=== PATIENT | male | born 1940 | race Caucasian/White ===

== ENCOUNTER 2016-10-01 15:17 | Inpatient (IN) | payer MEDICARE ==
[2016-10-01 15:54] LABS: ABSOLUTE NEUTROPHIL COUNT 15.8 K/mm3 (1.8-7.7); BASO % 0.1 % (0.2-1.0); HEMATOCRIT 48.9 % (32.0-52.0); HEMOGLOBIN 15.9 gm/l (14.0-18.0); IMM NEUT # 0.2 K/mm3 (0-0.2); IMM NEUT% 0.9 % (0-1); LYMPH # 0.8 (1.0-4.8); LYMPH % 4.4 % (15-45); MEAN CELL VOLUME 100.8 fl (80.0-94.0); MEAN CORPUSCULAR HEMOGLOBIN 32.8 pg (27.0-31.0); MEAN CORPUSCULAR HGB CONC 32.5 g/dl (33.0-37.0); MEAN PLATELET VOLUME 9.3 fl (7.4-10.4); MONO # 2.1 (0.0-0.8); MONO % 10.9 % (4-12); NEUT % 83.7 % (43-75); PLATELET COUNT 364 K/mm3 (130-400); RED CELL DISTRIBUTION WIDTH 12.5 % (11.5-14.5)
[2016-10-01 16:03] LABS: ALBUMIN 3.9 gm/dL (3.5-5.7); CALCIUM 9.9 mg/dL (8.6-10.3)
--- NOTE | 2016-10-01 16:52 | RAD ---
10/01/2016 4:46 PM CHEST - 2 VIEWS History: Cough, shortness of breath for 3 days Comparison: None Findings: Two views of the chest are obtained. The lungs demonstrate patchy airspace disease at the peripheral, posterior right base worrisome for pneumonia. Additionally, there is some airspace disease within the right middle lobe. Lingular airspace disease is also possible. There may be tiny effusions bilaterally. Hyperinflation is present with finding of the hemidiaphragm and increase in retrosternal airspace. The cardiomediastinal silhouette is unremarkable.. The osseous structures are intact.. IMPRESSION: Multifocal pneumonia with possible bilateral tiny effusions. Follow-up as clinically warranted.
[2016-10-01] MEDS ORDERED: CEFTRIAXONE 1 GRAM DUPLEX 50 ML IV ONE (18:32)
[2016-10-01] MEDS ORDERED: AZITHROMYCIN 250 MG TABLET ONE (18:32)
[2016-10-01] MEDS ORDERED: MENTHOL/CETYLPYRD 1 EACH LOZENGE PO PRN (20:48)
[2016-10-01] MEDS ORDERED: ACETAMINOPHEN 325 MG TABLET PO PRN (20:48)
[2016-10-01] MEDS ORDERED: BLISTEX LIPSTICK 1 EACH TP PRN (20:48)
[2016-10-01] MEDS ORDERED: BISACODYL 10 MG SUP PR PRN (20:48)
[2016-10-01] MEDS ORDERED: BISACODYL 5 MG TABLET.EC PO PRN (20:48)
[2016-10-01] MEDS ORDERED: MAGNESIUM HYDROXIDE 30 ML UDCUP PO PRN (20:48)
[2016-10-01] MEDS ORDERED: NICOTINE 14 MG PATCH 1 EACH TD PRN (20:55)
[2016-10-01] MEDS ORDERED: NICOTINE POLACRILEX 2 MG LOZENGE PO PRN (20:55)
[2016-10-01 21:34] VITALS: BMI 22.3
[2016-10-01] MEDS ORDERED: PUMP TUBING ONE (21:35)
[2016-10-01] MEDS: ENOXAPARIN SODIUM 40 MG/0.4 ML SYRINGE SUB-Q SCH (21:38)
[2016-10-01] MEDS: SODIUM CHLORIDE 0.9% 1,000 ML IV SCH ×2 (21:39→22:46)
[2016-10-02 04:03] LABS: URINE BILIRUBIN NEGATIVE (NEGATIVE); URINE BLOOD TRACE (NEGATIVE); URINE GLUCOSE (UA) NEGATIVE (NEGATIVE); URINE LEUKOCYTE ESTERASE NEGATIVE (NEGATIVE); URINE NITRITE NEGATIVE (NEGATIVE); URINE PROTEIN 1+ (NEGATIVE)
[2016-10-02 04:22] LABS: URINE APPEARANCE CLEAR; URINE COLOR AMBER; URINE UROBILINOGEN 8 mg/dL (0-1 mg/dl)
[2016-10-02 04:24] LABS: URINE BACTERIA 0; URINE EPITHELIAL CELLS RARE /hpf; URINE WBC 0-3 /hpf
--- NOTE | 2016-10-02 07:04 | HP ---
Ian Correa [id number] DATE OF ADMISSION: 10/01/2016 CHIEF COMPLAINT: Cough. HISTORY OF PRESENT ILLNESS: The patient is a 76-year-old male who reports feeling ill since Saturday of last week initially described as a bad cold, but as the week went on developed fevers, some chills, and dennis sputum. He has not had any hospitalizations for any respiratory conditions. He does smoke a pack of cigarettes a day. He was feeling quite tired and poorly, so came in. PAST MEDICAL HISTORY: Remarkable for glaucoma. He is hard of hearing and he has a remote history of humeral fracture. PAST SURGICAL HISTORY: Cataract replacement. ALLERGIES: THERE IS SOME EYE DROP THAT HE HAS BEEN INTOLERANT OF, BUT THEY ARE NOT SURE WHAT THAT IS. MEDICATIONS: 1. Dorzolamide drop each twice daily. 2. Lantanoprost 1 drop each eye daily. SOCIAL HISTORY: He is a retired numerical control machine machinist. 53 years. Has two kids. Smokes a pack of cigarettes per day. No alcohol use. No particular restoration affiliation. Hobbies none. He has one cat. FAMILY HISTORY: Father at 69. Mom at 81. REVIEW OF SYSTEMS: Eyes, he has glaucoma, but he is otherwise doing okay. Ears: Hard of hearing attributed to noise exposure. No acute complaints. Nose: He has had some nursing home sinus drainage and trouble. Mouth: Teeth have been okay, some have been lost. Neck is okay. Chest: He notes a little bit of soreness due to cough. He normally can walk without restriction and would not be limited in any way from a respiratory standpoint. No heart complaints. No stomach complaints. No diarrhea. No constipation. No vomiting. No urinary complaints. A little of bladder irritation with some frequency and urgency noted. Legs have been okay. Feet have been okay. Skin has been okay. No history of brain injury or strokes. He generally does not want resuscitation, but would accept limited intervention for respiratory status such as limited period of ventilation. PHYSICAL EXAMINATION: GENERAL: Nontoxic male slightly pale. VITAL SIGNS: Blood pressure 142/60, respirations 33 initially, later 28, pulse 79, but had been as high as 101 when he got his EKG, 84% saturation on room air, improved to 94% on 2 liters, temperature 97.9. HEENT: Head is normocephalic, atraumatic. Eyes are unremarkable. Ears are normal, but he is hard of hearing. Nose is normal. Mouth is grossly unremarkable. NECK: Supple. No jugular venous distention. LUNGS: Crackles left lateral chest and slight wheeze is noted bilaterally. He has got a cough which sounds slightly productive. HEART: Regular rate and rhythm. No murmur noted. ABDOMEN: Soft, nontender, nondistended. Bowel sounds are normal. No rebound, no guarding. EXTREMITIES: Legs are unremarkable without clubbing, cyanosis, or edema. Feet are normal. Pulses are good. Mild onychomycosis noted. NEURO: Patient's cranial nerves are intact. Speech is clear, but he is hard of hearing. DIAGNOSTICS: Chest x-ray multifocal pneumonia with possible bilateral tiny effusion suggested. EKG sinus tachycardia, right bundle branch block, QTC is prolonged at 459, septal Q-waves in V1 and V2. LABORATORY: White count 18.9, hemoglobin 15.9, platelets 364, MCV 100.8, sodium 140, potassium 3.6, chloride is 102, CO2 is 29, BUN is 21, creatinine 0.9, glucose 157. AST 23, ALT 30, alk phos 128. Troponin less than 0.01. Albumin 3.9, globulin 3.9. ASSESSMENT AND PLAN: 1. Suspected bacterial community acquired pneumonia, organism not identified yet. Plan Rocephin and azithromycin. 2. Hypoxia due to community acquired pneumonia. Plan oxygen and nebulizer treatments. 3. Sepsis due to community acquired pneumonia. Plan IV fluids. We will monitor pressures. 4. History of glaucoma. We will continue on eye drops. 5. Do not resuscitate, but would accept intubation on a temporary basis. 6. Venous thrombosis prophylaxis will be Lovenox. JOB: [id number] CC: [facility] where he will probably go in follow up.
[2016-10-02] MEDS: CEFTRIAXONE 1 GRAM DUPLEX 50 ML IV SCH (11:55)
[2016-10-02] MEDS: SODIUM CHLORIDE 0.9% 100 ML IV PRN (11:55)
[2016-10-02] MEDS: AZITHROMYCIN 500 MG in SODIUM CHLORIDE 0.9% 250 ML IV SCH (12:44)
--- NOTE | 2016-10-02 14:13 | PDOC43 ---
- Subjective Chief Complaint: Cough Subjective: Reports Tolerating Diet Well, Reports Shortness of Breath ( persistent), Reports Cough (persists) - Objective Vital Signs Temperature 97.6 F 10/02/16 12:00 Pulse Rate 75 10/02/16 12:00 Respiratory Rate 24 10/02/16 12:00 Blood Pressure 134/65 10/02/16 12:00 O2 Saturation by Pulse Oximetry 93 10/02/16 12:00 Oxygen Delivery Method Nasal Cannula Oxygen Flow Rate 2 Intake and Output 10/01/16 10/02/16 10/03/16 06:59 06:59 06:59 Intake Total 240 Output Total 125 Balance 115 General: Alert, Oriented x3, Cooperative, Mild Distress HEENT: Mucous membr. moist/pink Lungs: Diminished at Bases (with scattered ronchi) Cardiovascular: Regular Rate and Rhythm Abdomen: Soft, Normal Bowel Sounds, Non-Distended, No Tenderness Extremities: No Edema 10/02/16 03:50 Urine Urobilinogen 8 mg/dl H Current Medications: Current meds reviewed in EMR. - Problems: Assessment/Plan (1) Community acquired bacterial pneumonia Status: AcuteAssessment/Plan: multifocal bacterial pneumonia with sepsis and hypoxia-cont rocephin, zithromax , nebs and oxygen (2) Glaucoma Qualifiers: Glaucoma type: unspecified type Laterality: bilateral Qualifier Code: (H40.9) Unspecified glaucoma Status: ChronicAssessment/Plan: resume home eye drops when available VTE Prophylaxis: Lovenox Disposition: home when weaned off oxygen
[2016-10-02] MEDS ORDERED: IV START KIT ONE (17:43)
[2016-10-02] MEDS ORDERED: SODIUM CHLORIDE 0.9% FLUSH 10 ML ONE (17:43)
[2016-10-02] MEDS: ENOXAPARIN SODIUM 40 MG/0.4 ML SYRINGE SUB-Q SCH (20:30)
[2016-10-02] MEDS: ALBUTEROL/IPRATROPIUM 2.5/0.5 MG 3 ML/EACH DOSE NEB PRN (21:28)
[2016-10-02] MEDS: LATANOPROST 0.005% 50 GTTS/2.5 ML BOT SOLN.DROP OU SCH (23:23)
[2016-10-02] MEDS: DORZOLAMIDE 2% 200 GTTS/10 ML BOT SOLN.DROP OU SCH (23:24)
[2016-10-03 06:12] LABS: ABSOLUTE NEUTROPHIL COUNT 10.9 K/mm3 (1.8-7.7); BASO # 0.1 K/mm3 (0.0-0.2); BASO % 0.8 % (0.2-1.0); EOS # 0.1 (0.0-0.5); EOS % 0.5 % (0.9-2.9); HEMATOCRIT 40.6 % (32.0-52.0); HEMOGLOBIN 13.3 gm/l (14.0-18.0); IMM NEUT # 0.4 K/mm3 (0-0.2); IMM NEUT% 2.4 % (0-1); LYMPH % 13.7 % (15-45); MEAN CELL VOLUME 101.2 fl (80.0-94.0); MEAN CORPUSCULAR HEMOGLOBIN 33.2 pg (27.0-31.0); MEAN CORPUSCULAR HGB CONC 32.8 g/dl (33.0-37.0); MEAN PLATELET VOLUME 9.3 fl (7.4-10.4); MONO # 1.3 (0.0-0.8); MONO % 8.7 % (4-12); NEUT % 73.9 % (43-75); PLATELET COUNT 316 K/mm3 (130-400); RED CELL DISTRIBUTION WIDTH 12.8 % (11.5-14.5)
--- NOTE | 2016-10-03 12:34 | PDOC43 ---
- Subjective Chief Complaint: Cough Subjective: Reports Tolerating Diet Well (appetite improving), Reports Shortness of Breath (improving), Denies Chest Pain, Denies Fever - Objective Vital Signs Temperature 97.4 F 10/03/16 11:00 Pulse Rate 65 10/03/16 11:00 Respiratory Rate 16 10/03/16 11:00 Blood Pressure 118/56 10/03/16 11:00 O2 Saturation by Pulse Oximetry 94 10/03/16 11:00 Oxygen Delivery Method Nasal Cannula Oxygen Flow Rate 1.5 Intake and Output 10/02/16 10/03/16 10/04/16 06:59 06:59 06:59 Intake Total 240 1794 Output Total 125 1355 Balance 115 439 General: Alert, Oriented x3, Cooperative, Mild Distress HEENT: Mucous membr. moist/pink Lungs: Other (scattered ronchi) Cardiovascular: Regular Rate and Rhythm Abdomen: Soft, Normal Bowel Sounds, Non-Distended, No Tenderness Extremities: No Edema Laboratory 10/03/16 05:30 10/03/16 05:30 RBC 4.01 L MCV 101.2 H MCH 33.2 H MCHC 32.8 L % Immature Granulocyt 2.4 H Current Medications: Current meds reviewed in EMR. - Problems: Assessment/Plan (1) Community acquired bacterial pneumonia Status: AcuteAssessment/Plan: multifocal bacterial pneumonia with sepsis and hypoxia-cont rocephin, zithromax , nebs and oxygen (2) Glaucoma Qualifiers: Glaucoma type: unspecified type Laterality: bilateral Qualifier Code: (H40.9) Unspecified glaucoma Status: ChronicAssessment/Plan: Cont home eye drops VTE Prophylaxis: Lovenox Disposition: home when weaned off oxygen, likely in am
[2016-10-03] MEDS: DORZOLAMIDE 2% 200 GTTS/10 ML BOT SOLN.DROP OU SCH ×2 (12:35→21:56)
[2016-10-03] MEDS: CEFTRIAXONE 1 GRAM DUPLEX 50 ML IV SCH (12:35)
[2016-10-03] MEDS: AZITHROMYCIN 500 MG in SODIUM CHLORIDE 0.9% 250 ML IV SCH (13:38)
[2016-10-03] MEDS: ALBUTEROL/IPRATROPIUM 2.5/0.5 MG 3 ML/EACH DOSE NEB PRN (19:22)
[2016-10-03] MEDS: ENOXAPARIN SODIUM 40 MG/0.4 ML SYRINGE SUB-Q SCH (21:56)
[2016-10-03] MEDS: LATANOPROST 0.005% 50 GTTS/2.5 ML BOT SOLN.DROP OU SCH (22:04)
[2016-10-03] MEDS ORDERED: ALBUTEROL NEB 2.5 MG/3 ML VIAL.NEB NEB PRN (23:43)
[2016-10-04 06:12] LABS: ABSOLUTE NEUTROPHIL COUNT 13.5 K/mm3 (1.8-7.7); BASO % 0.2 % (0.2-1.0); EOS # 0.2 (0.0-0.5); EOS % 1.1 % (0.9-2.9); HEMATOCRIT 41.5 % (32.0-52.0); HEMOGLOBIN 13.2 gm/l (14.0-18.0); IMM NEUT # 0.8 K/mm3 (0-0.2); IMM NEUT% 4.4 % (0-1); LYMPH # 1.7 (1.0-4.8); LYMPH % 9.7 % (15-45); MEAN CELL VOLUME 102.2 fl (80.0-94.0); MEAN CORPUSCULAR HEMOGLOBIN 32.5 pg (27.0-31.0); MEAN CORPUSCULAR HGB CONC 31.8 g/dl (33.0-37.0); MONO # 1.3 (0.0-0.8); MONO % 7.2 % (4-12); NEUT % 77.4 % (43-75); PLATELET COUNT 312 K/mm3 (130-400); RED CELL DISTRIBUTION WIDTH 12.8 % (11.5-14.5)
[2016-10-04 06:32] LABS: CALCIUM 8.9 mg/dL (8.6-10.3)
[2016-10-04 06:58] LABS: BAND 2 % (0-10); BASOPHIL 0 % (0-1); EOSINOPHIL 0 % (1-3); LYMPHOCYTE 11 % (15-45); MONOCYTE 6 % (4-12); NEUTROPHILS 81 % (43-75); TOTAL CELLS COUNTED 100
[2016-10-04 06:59] LABS: PLATELET ESTIMATE NORMAL (NORMAL)
[2016-10-04] MEDS: DORZOLAMIDE 2% 200 GTTS/10 ML BOT SOLN.DROP OU SCH (08:46)
--- NOTE | 2016-10-04 11:14 | RAD ---
CHEST 2 VIEWS HISTORY: Follow-up for pneumonia Frontal and lateral chest radiographs dated 10/04/2016. COMPARISON: 10/01/2016 FINDINGS: LUNG VOLUMES: Hyperinflation. FOCAL AIRSPACE OPACITY: Residual focal density at the lingula. Density at the right lung base is minimally improved. Diffuse reticular markings are noted with additional airspace abnormality of the mid lung barcenas, stable. PLEURAL EFFUSION: Minimal right pleural effusion. CARDIOMEDIASTINAL SILHOUETTE: Nonenlarged. PNEUMOTHORAX: Apical fibrosis, no pneumothorax. OSSEOUS STRUCTURES: Features of thoracic disc degeneration. IMPRESSION: 1. Redemonstration of multifocal airspace disease compatible with history of pneumonia, mildly improved at the right lung base. 2. Residual focal density of the lingula; continued short-term follow-up is recommended with consideration of CT examination to exclude a mass lesion at this region. 3. Hyperinflation compatible with obstructive pulmonary disease.
[2016-10-04] MEDS: L.ACIDOPH,SAL/B.BIF/S.THER 175 MG 1 CAP PO SCH ×2 (11:33→20:48)
[2016-10-04] MEDS ORDERED: PUMP TUBING ONE (11:48)
[2016-10-04 11:54] LABS: C DIFF TOXIN A/B NEGATIVE (NEGATIVE)
[2016-10-04] MEDS: CEFTRIAXONE 1 GRAM DUPLEX 50 ML IV SCH (12:00)
[2016-10-04] MEDS: SODIUM CHLORIDE 0.9% 100 ML IV PRN (12:00)
--- NOTE | 2016-10-04 12:47 | PDOC43 ---
- Subjective Chief Complaint: Cough Subjective: Reports Shortness of Breath (with activity but improving), Reports Cough (improving), Denies Fever - Objective Vital Signs Temperature 98.0 F 10/04/16 11:00 Pulse Rate 74 10/04/16 11:00 Respiratory Rate 20 10/04/16 11:00 Blood Pressure 112/64 10/04/16 11:00 O2 Saturation by Pulse Oximetry 96 10/04/16 11:00 Oxygen Delivery Method Nasal Cannula Oxygen Flow Rate 1.5 Intake and Output 10/03/16 10/04/16 10/05/16 06:59 06:59 06:59 Intake Total 1794 1327 Output Total 1355 450 Balance 439 877 General: Alert, Oriented x3, Cooperative, Mild Distress HEENT: Mucous membr. moist/pink Lungs: Diminished at Bases (with bibasilar ronch) Cardiovascular: Regular Rate and Rhythm Abdomen: Soft, Normal Bowel Sounds, Non-Distended, No Tenderness Extremities: No Edema Skin: Warm, Dry, Intact Laboratory 10/04/16 05:30 10/04/16 05:30 10/04/16 05:30 RBC 4.06 L MCV 102.2 H MCH 32.5 H MCHC 31.8 L Estimated GFR 110 H % Immature Granulocyt 4.4 H Current Medications: Current meds reviewed in EMR. - Problems: Assessment/Plan (1) Community acquired bacterial pneumonia Status: AcuteAssessment/Plan: multifocal bacterial pneumonia with sepsis and hypoxia(still present with activity), leukocytosis slightly worse today but repeat CXR reassuring-cont rocephin, zithromax, nebs and oxygen. Anticipate one more day and will repeat CBC in am (2) Glaucoma Qualifiers: Glaucoma type: unspecified type Laterality: bilateral Qualifier Code: (H40.9) Unspecified glaucoma Status: ChronicAssessment/Plan: Cont home eye drops (3) Diarrhea Qualifiers: Diarrhea type: unspecified type Qualifier Code: (R19.7) Diarrhea, unspecified Status: AcuteAssessment/Plan: likely due to antibiotics but C. Diff is negative VTE Prophylaxis: Lovenox Disposition: home when weaned off oxygen(still hypoxic with activity), likely in am
[2016-10-04] MEDS ORDERED: POTASSIUM CHLORIDE 20 MEQ TAB.PRT.SR PO ONE (12:48)
[2016-10-04] MEDS: AZITHROMYCIN 500 MG in SODIUM CHLORIDE 0.9% 250 ML IV SCH (13:10)
[2016-10-04] MEDS: ENOXAPARIN SODIUM 40 MG/0.4 ML SYRINGE SUB-Q SCH (20:48)
[2016-10-04] MEDS ORDERED: DORZOLAMIDE 2% OU SCH (21:00)
[2016-10-04] MEDS ORDERED: LATANOPROST 0.005% OU SCH (21:00)
[2016-10-05] MEDS: LATANOPROST 0.005% 50 GTTS/2.5 ML BOT SOLN.DROP OU SCH
[2016-10-05 06:00] LABS: ABSOLUTE NEUTROPHIL COUNT 10.4 K/mm3 (1.8-7.7); BASO % 0.3 % (0.2-1.0); EOS # 0.4 (0.0-0.5); EOS % 2.5 % (0.9-2.9); HEMATOCRIT 40.2 % (32.0-52.0); HEMOGLOBIN 12.7 gm/l (14.0-18.0); IMM NEUT # 0.8 K/mm3 (0-0.2); IMM NEUT% 5.2 % (0-1); LYMPH # 1.9 (1.0-4.8); LYMPH % 13.4 % (15-45); MEAN CELL VOLUME 103.1 fl (80.0-94.0); MEAN CORPUSCULAR HEMOGLOBIN 32.6 pg (27.0-31.0); MEAN CORPUSCULAR HGB CONC 31.6 g/dl (33.0-37.0); MEAN PLATELET VOLUME 9.1 fl (7.4-10.4); NEUT % 71.6 % (43-75); PLATELET COUNT 326 K/mm3 (130-400); RED CELL DISTRIBUTION WIDTH 12.9 % (11.5-14.5)
[2016-10-05 06:37] LABS: BAND 6 % (0-10); BASOPHIL 1 % (0-1); EOSINOPHIL 1 % (1-3); LYMPHOCYTE 10 % (15-45); MONOCYTE 9 % (4-12); NEUTROPHILS 73 % (43-75); PLATELET ESTIMATE NORMAL (NORMAL); TOTAL CELLS COUNTED 100
[2016-10-05] MEDS: DORZOLAMIDE 2% 200 GTTS/10 ML BOT SOLN.DROP OU SCH ×2 (09:33)
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
--- NOTE | 2016-10-05 11:16 | CT ---
Exam: CT chest without contrast COMPARISON: Chest regressed 10/04/2016, 10/01/2016 and left shoulder radiographs and CT dated 12/23/2007 INDICATION: Follow-up lingular density. History of smoking. TECHNIQUE: CT examination of the chest was obtained without contrast. FINDINGS: Upper lobe predominant emphysema is present, moderate to severe. There is mild diffuse bronchial wall thickening, with several patchy areas of tree in bud nodularity compatible with bronchiolitis. This involves both lungs, but right greater than left. There are several small scattered pulmonary nodules, none of which are discretely seen by chest radiograph, and the vast majority of which are along the bronchovascular bundles suggesting some could reflect focal mucous plugging rather than true pulmonary nodules. There is a small residual focus of subpleural airspace disease within the posterior right lower lobe. The opacity within the lingula as seen on chest radiograph is somewhat oblong in shape and is most compatible with a small area of inflammatory/infectious disease rather than neoplasm. There are a few perifissural nodules on the right which likely reflect lymph nodes. Scattered mediastinal lymph nodes are noted, none of which are significant by size criteria. Miniscule right-sided pleural effusion is noted. There is no left-sided pleural effusion. There is no pericardial effusion. Coronary calcifications are appreciated. There is some high density material within the esophagus reflecting either stasis or perhaps reflux. The esophagus is not distended. Limited evaluation of the upper abdomen demonstrates atheromatous aorta, hepatic cysts, renal cysts nonobstructing left renal calculus. There is some thickening of the adrenal glands, right slightly greater than left, suggesting hyperplasia. No discrete renal lesion is seen. No worrisome lytic or blastic osseous abnormalities identified. IMPRESSION: 1. The lingular opacity seen on recent chest radiograph is most compatible with a focus of inflammatory/infectious disease rather than malignancy. Additional findings of bronchiolitis are seen, small focus of airspace disease is also present within the right lower lobe with a tiny right-sided pleural effusion. Given the multiplicity of bilateral pulmonary nodules and underlying emphysema, follow-up CT examination of the chest without contrast is recommended. 2. Hyperdense material within the esophagus suggesting either stasis or reflux. The esophagus is not distended. 3. Coronary artery calcifications. 4. Incidental findings in the upper abdomen as above. Message left for Dr. Martin on the voicemail for hospitalist at 1112 hours 10/05/2016.
[2016-10-05] MEDS: L.ACIDOPH,SAL/B.BIF/S.THER 175 MG 1 CAP PO SCH (12:08)
[2016-10-05 12:12] VITALS: BP 108/50
[2016-10-05] MEDS: CEFTRIAXONE 1 GRAM DUPLEX 50 ML IV SCH (12:19)
[2016-10-05] MEDS ORDERED: CEFUROXIME AXETIL 500 MG TABLET PO ONE (12:45)
--- NOTE | 2016-10-06 13:56 | DS ---
MAG ZUNIGA [id number] DATE OF ADMISSION: October 01, 2016 DATE OF DISCHARGE: October 02, 2016 DISCHARGE DIAGNOSES: Are: 1. Community acquired pneumonia in lingula and right lower lobe, organism not identified. 2. Emphysema associated with long smoking history. 3. Bilateral pulmonary nodules seen on CT. 4. Glaucoma on eyedrops. 5. Respiratory insufficiency with hypoxia. REASON FOR ADMISSION: The patient is a 76-year-old male without a local physician who had been feeling poorly from the week prior to admission with initial symptoms similar to a bad cold and then developed fevers, chills, and sputum of a dennis color. In the emergency room, he was noted to be hypoxic and have saturations to 84% on room air, tachycardia to 101, blood pressure 142/60, respirations 33. His admitting lab showed a white blood cell count of 18.0, hemoglobin 15.9, platelets 364, lactate 1.1. Electrocautery on admission were unremarkable. Glucose of 157, AST 23, ALT 30, alkaline phosphatase 128, and troponin less than 0.01. Urinalysis was normal except for 8 mg/dL of urobilinogen. He had also had some loose stools. Patient was referred to the hospitalist service and treated for community acquired pneumonia as seen on chest x-ray with multifocal pneumonia with possible bilateral tiny effusions on chest x-ray. He received Rocephin and azithromycin along with some IV fluids and had good improvement although had some persisting hypoxia generally requiring supplemental oxygen initially 2 liters per minute and later 1 liter per minute to maintain acceptable saturations. He had a second chest x-ray performed on October 04, 2016 showing redemonstration of multifocal airspace disease compatible with history of pneumonia, mildly improved in the right lung base, residual focal density at the lingula. Short term followup is recommended with consideration of CT examination to exclude a mass lesion at this region. Hyperinflation compatible with chronic obstructive pulmonary disease. He underwent chest CT on October 05, 2016 to follow up on this showing lingular opacity on chest radiograph most compatible with a focus of inflammatory or infectious disease rather than malignancy. Additional findings of bronchiolitis are seen. Small focus of airspace disease is also present on the right lower lobe with tiny right-sided pleural effusion. Given the simplicity of bilateral pulmonary nodules and underlying emphysema, followup CT examination of the chest without contrast is recommended. Hyperdense material in the esophagus suggesting either stasis or reflux. Esophagus was not distended. Coronary artery calcifications and nonobstructing left renal calculus, slight thickening of the adrenal glands, right greater than left, suggesting hyperplasia. Patient did have some loose stools and had a negative C-difficile test done while in the hospital. By October 05, 2016, patient was feeling very well and able to take a shower and very eager for discharge. DISCHARGE MEDICATIONS: He is anticipated to be discharged to home with the following medications: 1. Ceftin 500 mg orally twice daily times ten more days. 2. Dorzolamide 1 drop both eyes twice daily. 3. Combivent one puff inhaled four times daily as needed. 4. Latanoprost one drop both eyes at bedtime. 5. He will continue on oxygen at 1 liter per minute. FOLLOWUP: He is asked to follow up and the family requests Jameson Chau, so he will follow up with him in the next week to ten days to assess if he is able to discontinue the supplemental oxygen. He is strongly encouraged to not smoke and has explained several times to him risks of oxygen use and smoking. He intends to remain abstinent from smoking. DISCHARGE DIET: As tolerated. DISCHARGE ACTIVITY: As tolerated. Job [id number] Cc: Clint Steel
== END 2016-10-05 13:00 | disposition home or self-care (01) | DRG 871 ==
LOC: ED 15:17 → MS 19:18
PROVIDERS: ADMIT Family Medicine; ATTEND Family Medicine
DX: A41.89 Other specified sepsis (principal); J15.9 Unspecified bacterial pneumonia; H40.9 Unspecified glaucoma; R19.7 Diarrhea, unspecified; Z66 Do not resuscitate; J43.9 Emphysema, unspecified; Z87.891 Personal history of nicotine dependence